=== PATIENT | male | born 1950 | race Caucasian/White ===

== ENCOUNTER 2016-12-01 22:38 | Inpatient (IN) | payer MEDICARE, OTHER ==
[2016-12-02] MEDS ORDERED: METOPROLOL 5 MG/5 ML VIAL IVP STA (02:01)
[2016-12-02] MEDS ORDERED: CLOPIDOGREL 75 MG TABLET PO STA (02:01)
[2016-12-02] MEDS ORDERED: CLOPIDOGREL 75 MG TABLET ONE (02:07)
[2016-12-02] MEDS ORDERED: METOPROLOL 5 MG/5 ML VIAL IVP ONE (02:08)
[2016-12-02] MEDS ORDERED: HEPARIN 25,000 UNITS/500 ML 500 ML IV STA (02:54)
[2016-12-02] MEDS ORDERED: HEPARIN 25,000 UNITS/500 ML 500 ML IV ONE (02:54)
[2016-12-02] MEDS ORDERED: HEPARIN 5,000 UNIT/ML VIAL IVP STA (02:54)
[2016-12-02] MEDS ORDERED: HEPARIN 5,000 UNIT/ML VIAL ONE (02:54)
[2016-12-02] MEDS ORDERED: ATORVASTATIN 10 MG TABLET PO STA (02:56)
[2016-12-02] MEDS ORDERED: TEMAZEPAM 15 MG CAPSULE PO PRN (03:59)
[2016-12-02] MEDS ORDERED: SODIUM CHLORIDE FLUSH 0.9% 10 ML SYRINGE IVP PRN (03:59)
[2016-12-02] MEDS ORDERED: ACETAMINOPHEN 325 MG TABLET PO PRN (03:59)
[2016-12-02] MEDS ORDERED: ONDANSETRON 4 MG/2 ML VIAL IVP PRN (03:59)
[2016-12-02] MEDS ORDERED: NITROGLYCERIN SL 0.4 MG TABLET SL PRN (04:01)
[2016-12-02] MEDS ORDERED: MORPHINE 2 MG/ML SYRINGE IVP PRN (04:08)
[2016-12-02] MEDS ORDERED: CLOPIDOGREL 75 MG TABLET PO SCH (05:00)
[2016-12-02] MEDS ORDERED: HEPARIN 25,000 UNITS/500 ML 500 ML IV SCH (05:00)
[2016-12-02] MEDS ORDERED: ATORVASTATIN 40 MG TABLET PO SCH (05:00)
[2016-12-02] MEDS: METOPROLOL TARTRATE 25 MG TABLET PO SCH ×2 (06:00→09:10)
[2016-12-02] MEDS ORDERED: SODIUM CHLORIDE FLUSH 0.9% 10 ML SYRINGE IVP SCH (06:00)
[2016-12-02] MEDS ORDERED: ASPIRIN CHEW 81 MG TABLET PO SCH (09:00)
[2016-12-02] MEDS ORDERED: POLYETHYLENE GLYCOL 3350 17 GM PACKET PO SCH (09:00)
[2016-12-02] MEDS ORDERED: NICOTINE 14 MG PATCH TOP SCH (09:00)
[2016-12-02] MEDS ORDERED: HEPARIN BOLUS PRN PER PROTOCOL IVP (09:08)
[2016-12-02] MEDS ORDERED: IBUPROFEN 400 MG TABLET PO ONE (10:45)
[2016-12-03] MEDS ORDERED: METOPROLOL TARTRATE 50 MG TABLET PO SCH (21:00)
== END 2016-12-02 10:59 | disposition short-term general hospital (02) | DRG 281 ==
DX: I21.4 Non-ST elevation (NSTEMI) myocardial infarction (principal); N17.9 Acute kidney failure, unspecified; E86.0 Dehydration; F17.210 Nicotine dependence, cigarettes, uncomplicated; M19.041 Primary osteoarthritis, right hand; Z96.652 Presence of left artificial knee joint; Z96.641 Presence of right artificial hip joint; Z79.82 Long term (current) use of aspirin; Z79.899 Other long term (current) drug therapy

== ENCOUNTER 2016-12-02 | Outpatient (CLI) | payer MEDICARE, OTHER | END 2016-12-02 10:59 | disposition short-term general hospital (02) | DX: I21.4 Non-ST elevation (NSTEMI) myocardial infarction (principal) | CPT/HCPCS: A0170; A0425; A0426 ==

== ENCOUNTER 2018-10-14 08:11 | Outpatient (CLI) | payer MEDICARE, OTHER ==
--- NOTE | 2018-10-15 00:37 | Ultrasound Report ---
Reason: RUQ PAIN Procedure Date: 10/14/2018 Accession Number: [id number] / [id number] Procedure: US - Abdomen Limited CPT Code: FULL RESULT: EXAM: ABDOMEN ULTRASOUND LIMITED, RUQ EXAM DATE: 10/14/2018 09:10 AM. CLINICAL HISTORY: Right upper quadrant pain. COMPARISON: None. TECHNIQUE: Real-time scanning was performed with static images obtained. FINDINGS: Liver: Normal in size and echotexture. Multiple cysts, one on the left 1.2 x 0.9 x 1.0 cm, 2 on the right 3.8 x 3.4 x 3.4 cm and 2.4 x 2.6 x 2.4 cm. Liver 15.7 cm. Main portal vein flow: Hepatopetal. Gallbladder: Normal. No stones, wall thickening, or sonographic Diehl's sign. Biliary System: CBD measures 4 mm. No intrahepatic or extrahepatic ductal dilatation. Other: The visualized pancreas and right kidney are unremarkable. No free fluid. IMPRESSION: Multiple hepatic cysts. No cholelithiasis or cholecystitis. RADIA
== END 2018-10-14 08:12 | disposition home or self-care (01) ==
LOC: DI 08:11
PROVIDERS: ATTEND Family Medicine
DX: R10.11 Right upper quadrant pain (principal); K76.89 Other specified diseases of liver
CPT/HCPCS: 76705

== ENCOUNTER 2019-01-08 10:36 | Day surgery (SDC) | payer MEDICARE, OTHER ==
[2019-01-08] MEDS ORDERED: LACTATED RINGERS 1,000 ML IV ONE (11:03)
[2019-01-08] MEDS ORDERED: fentaNYL 250 MCG/5 ML VIAL IVP ONE (11:18)
[2019-01-08] MEDS ORDERED: MIDAZOLAM 2 MG/2 ML VIAL IVP ONE (11:18)
[2019-01-08 12:48] VITALS: BP 109/65
== END 2019-01-08 12:47 | disposition home or self-care (01) ==
LOC: SDS 10:36
PROVIDERS: ATTEND Surgery
PROC: 0DJD8ZZ Inspection of Lower Intestinal Tract, Via Natural or Artificial Opening Endoscopic (ICD-10-PCS; principal; 2019-01-08 12:00)
DX: Z12.11 Encounter for screening for malignant neoplasm of colon (principal); K64.8 Other hemorrhoids; K57.30 Diverticulosis of large intestine without perforation or abscess without bleeding; Z86.010 Personal history of colon polyps; E66.9 Obesity, unspecified; Z68.42 Body mass index [BMI] 45.0-49.9, adult; I25.2 Old myocardial infarction; Z87.891 Personal history of nicotine dependence
CPT/HCPCS: G0105; J3010; J7120

== ENCOUNTER 2019-06-19 08:25 | Outpatient (CLI) | payer MEDICARE, OTHER | END 2019-06-19 08:26 | disposition home or self-care (01) | LOC: RT 08:25 | PROVIDERS: ATTEND Family Medicine | DX: Z01.810 Encounter for preprocedural cardiovascular examination (principal) | CPT/HCPCS: 93005 ==

== ENCOUNTER 2019-08-25 11:17 | Outpatient (CLI) | payer MEDICARE, OTHER ==
--- NOTE | 2019-08-25 21:00 | Ultrasound Report ---
Reason: PRESENCE OF LEFT ARTIFICIAL HIP JOINT Procedure Date: 08/25/2019 Accession Number: [id number] / [id number] Procedure: US - Duplex Ext Veins Left CPT Code: FULL RESULT: EXAM: LEFT LOWER EXTREMITY VENOUS ULTRASOUND EXAM DATE: 08/25/2019 12:30 PM. CLINICAL HISTORY: PRESENCE OF LEFT ARTIFICIAL HIP JOINT. COMPARISON: None. TECHNIQUE: Real-time sonographic vascular imaging was performed by the personal assistant through the lower extremity utilizing both color-flow and Doppler spectral analysis. Multiple pharmaceutical sales representative static images were saved for review. FINDINGS: Common Femoral Vein (CFV): Normal. CFV-GSV Junction: Normal. Profunda Femoral Vein (PFV): Normal. Femoral Vein (FV) Prox: Normal. Femoral Vein (FV) Mid: Normal. Femoral Vein (FV) Dist: Normal. Popliteal Vein: Normal. Posterior Tibial Veins: Limited visualization. Given the limitations, no thrombus identified. Limitations most severe in the proximal posterior tibial vein. Peroneal Veins: Limited visualization. Given the limitations, no thrombus identified. Entire segment limited from proximal to distal. Contralateral Side CFV: Normal. Other: None. IMPRESSION: 1. Suboptimal visualization of posterior tibial and peroneal veins. 2. Given the limitations, no evidence for deep venous thrombosis. RADIA
== END 2019-08-25 11:18 | disposition home or self-care (01) ==
LOC: DI 11:17
PROVIDERS: ATTEND Orthopaedic Surgery
DX: Z96.642 Presence of left artificial hip joint (principal)

== ENCOUNTER 2019-12-12 12:28 | Outpatient (CLI) | payer MEDICARE, OTHER ==
[2019-12-12 12:46] LABS: CALCIUM 8.7 mg/dL (8.5-10.3); CREATININE 0.9 mg/dL (0.6-1.2)
== END 2019-12-12 12:29 | disposition home or self-care (01) ==
LOC: LAB 12:28
PROVIDERS: ATTEND Internal Medicine Cardiovascular Disease
DX: I10 Essential (primary) hypertension (principal)
CPT/HCPCS: 36415; 80048

== ENCOUNTER 2021-09-02 08:02 | Outpatient (CLI) | payer MEDICARE, OTHER ==
--- NOTE | 2021-09-02 09:13 | Ultrasound Report ---
PROCEDURE: Aorta Screening INDICATIONS: FORMER SMOKER TECHNIQUE: Real time scanning was performed of the aorta and iliac arteries, with image documentatio n. COMPARISON: None. FINDINGS: Aorta: The proximal aorta is obscured. Mid-aorta measures 2.1 x 2.3 cm. Distal aortic diameter is 1.9 x 1.8 cm. Iliac arteries: Right common iliac artery measures 1.2 x 1.1 cm. Left common iliac artery measures 1.3 x 1.2 cm. IMPRESSION: 1.No aneurysmal dilatation of the visualized aorta. Reviewed by: Stevo Whaley MD on 09/02/2021 9:11 AM PDT Approved by: Stevo Whaley MD on 09/02/2021 9:11 AM PDT Station ID: [id number]
--- NOTE | 2021-09-02 09:15 | CT Report ---
PROCEDURE: Low Dose Lung Cancer Screen INDICATIONS: FORMER SMOKER TECHNIQUE: Noncontrast low-dose images were acquired from the pulmonary apices to the posterior costophrenic ang les. Multiplanar MIP reformats were then acquired. For radiation dose reduction, the following was used: automated exposure control, adjustment of mA and/or kV according to patient size. COMPARISON: CXR 12/02/2016. FINDINGS: Image quality: Excellent. Lungs and pleura: Right lower lobe calcified granuloma. No significant pulmonary nodules. No mass. A irways are clear. No acute airspace opacity. No pleural effusion. No pneumothorax. Mediastinum: Heart size is normal. Dense LAD and left circumflex coronary artery calcifications or stents. No pericardial effusion. No mediastinal adenopathy by size criteria. Thoracic aorta and carlos alberto tral pulmonary arteries are normal in size. Esophagus is normal in caliber. No hiatal hernia. Bones and chest wall: No suspicious bony lesions. No vertebral body compression fractures. ACDF not ed. No axillary or supraclavicular adenopathy by size criteria. Thyroid is not well seen due to sukhjinder fact. Abdomen: Benign liver cysts. Visualized upper abdomen solid organs and bowel loops appear normal in the absence of contrast. IMPRESSION: 1. No significant pulmonary nodules. Calcified granuloma. Lung RADS 1. Recommend continued annual screening with low dose lung cancer screening CT in 12 months . 2. Dense LAD and left circumflex coronary artery calcifications or stents. 3. Benign liver cysts. CLINICAL RECOMMENDATION STATEMENTS: In patients <35 years with an ITN detected on CT, MRI, or extrathyroidal ultrasound, the Committee re commends further evaluation with dedicated thyroid ultrasound if the nodule is "e1 cm and has no susp icious imaging features, and if the patient has normal life expectancy. In patients "e35 years with an ITN detected on CT, MRI, or extrathyroidal ultrasound, the Committee r ecommends further evaluation with dedicated thyroid ultrasound if the nodule is "e1.5 cm and has no s uspicious imaging features, and if the patient has normal life expectancy. (ACR, 2014) Reviewed by: Ash Foster MD on 09/02/2021 9:14 AM PDT Approved by: Ash Foster MD on 09/02/2021 9:14 AM PDT Station ID: [id number]
== END 2021-09-02 08:03 | disposition home or self-care (01) ==
LOC: DI 08:02
PROVIDERS: ATTEND Physician Assistant
DX: Z12.2 Encounter for screening for malignant neoplasm of respiratory organs (principal); Z13.6 Encounter for screening for cardiovascular disorders; Z87.891 Personal history of nicotine dependence; J84.10 Pulmonary fibrosis, unspecified; R93.1 Abnormal findings on diagnostic imaging of heart and coronary circulation; K76.89 Other specified diseases of liver

== ENCOUNTER 2022-09-03 09:27 | Outpatient (CLI) | payer MEDICARE, OTHER ==
--- NOTE | 2022-09-03 12:44 | CT Report ---
PROCEDURE: SINUS SCREENING WO INDICATIONS: CHRONIC SINUSITIS TECHNIQUE: Noncontrast 3.0 mm axial images acquired from the frontal sinuses to the mid-sella, with coronal and sagittal reformats. For radiation dose reduction, the following was used: automated exposure control , adjustment of mA and/or kV according to patient size. COMPARISON: 06/21/2022 FINDINGS: Image quality: Excellent. Maxillary Sinuses: There is mild to moderate mucosal thickening seen within the right maxillary sinu s and there is mild mucosal thickening seen within the left maxillary sinus. The medial allison of the maxillary sinuses are demineralized. Ethmoid Air Cells: Mild to moderate mucosal thickening is seen within the ethmoid air cells. The eth moid air cells septations are overall mildly demineralized. Sphenoid Sinuses: No bony remodeling or destruction. Sinuses are clear. Frontal Sinuses: No bony remodeling or destruction. There is mild to moderate right and mild left in feromedial frontal sinus mucosal thickening. Ostiomeatal Complexes: Ostiomeatal complexes are patent, yet they are constitutionally narrowed. No Karlos cells. Miscellaneous: Visualized intra-orbital contents are normal. No laureen bullosa. There is mild to moderate rightward nasal septal deviation. IMPRESSION: Multiple sites of paranasal sinus disease are seen, which are minimally improved compare d to the prior CT. Reviewed by: Robert Alonso MD on 09/03/2022 11:43 AM YANIRA Approved by: Robert Alonso MD on 09/03/2022 11:43 AM YANIRA Station ID: [id number]
== END 2022-09-03 09:28 | disposition home or self-care (01) ==
LOC: DI 09:27
PROVIDERS: ATTEND Otolaryngology
DX: J34.89 Other specified disorders of nose and nasal sinuses (principal); R43.8 Other disturbances of smell and taste

== ENCOUNTER 2023-09-05 11:22 | Outpatient (CLI) | payer MEDICARE, OTHER ==
--- NOTE | 2023-09-05 20:31 | XRAY Report ---
PROCEDURE: Chest 2 View X-Ray INDICATIONS: COUGH TECHNIQUE: 2 views of the chest were obtained. COMPARISON: None. FINDINGS: Surgical changes and devices: Lower cervical spine instrumentation Lungs and pleura: Obscuration left hemidiaphragm and blunting left costophrenic angle associated by basilar atelectasis and or infiltrates greater on the left. Mediastinum: Mediastinal contours appear normal. Heart size is normal. Bones and chest wall: No suspicious bony lesions. Overlying soft tissues appear unremarkable. IMPRESSION: Bibasilar atelectasis and or infiltrate greater on the left associated with moderate left pleural eff usion Reviewed by: Eder Horne MD on 09/05/2023 7:30 PM AKARACELI Approved by: Eder Horne MD on 09/05/2023 7:30 PM AKDT Station ID: [id number]
== END 2023-09-05 11:23 | disposition home or self-care (01) ==
LOC: DI.S 11:22
PROVIDERS: ATTEND Registered Nurse
DX: R05.9 Cough, unspecified (principal); J90 Pleural effusion, not elsewhere classified

== ENCOUNTER 2023-09-16 12:20 | Outpatient (CLI) | payer MEDICARE, OTHER ==
--- NOTE | 2023-09-16 16:04 | XRAY Report ---
PROCEDURE: Chest 2 View X-Ray INDICATIONS: LOBAR PNEUMONIA TECHNIQUE: 2 views of the chest were acquired. COMPARISON: Chest x-ray 09/05/2023. FINDINGS: Surgical changes and devices: None. Lungs and pleura: Bilateral lower lobe infiltrates are mildly improved compared to prior. Stable mod erate left pleural effusion. Mediastinum: Mediastinal contours appear normal. Heart size is normal. Bones and chest wall: No suspicious bony lesions. Overlying soft tissues appear unremarkable. IMPRESSION: Bilateral lower lobe infiltrates are mildly improved compared to prior. Stable moderate left pleural effusion. Reviewed by: Antonio Guerra MD on 09/16/2023 1:05 PM PDT Approved by: Antonio Guerra MD on 09/16/2023 1:05 PM PDT Station ID: [id number]
== END 2023-09-16 12:21 | disposition home or self-care (01) ==
LOC: DI 12:20
PROVIDERS: ATTEND Registered Nurse
DX: J18.1 Lobar pneumonia, unspecified organism (principal); J90 Pleural effusion, not elsewhere classified

== ENCOUNTER 2023-10-03 10:16 | Outpatient (CLI) | payer MEDICARE, OTHER ==
--- NOTE | 2023-10-03 11:54 | XRAY Report ---
PROCEDURE: Chest 2 View X-Ray INDICATIONS: PLEURAL EFFUSION TECHNIQUE: 2 views of the chest were acquired. COMPARISON: CXR 09/16/2023, 09/05/2023. FINDINGS: Surgical changes and devices: ACDF. Lungs and pleura: No pneumothorax. Small left pleural effusion is stable. Bibasilar hazy opacity is similar. Mediastinum: Mediastinal contours appear unchanged. Heart size is normal. Bones and chest wall: No suspicious bony lesions. Overlying soft tissues appear unremarkable. IMPRESSION: Small left pleural effusion is unchanged. Mild bibasilar hazy opacity is similar. Reviewed by: Ash Foster MD on 10/03/2023 11:53 AM PST Approved by: Ash Foster MD on 10/03/2023 11:53 AM [facility] Station ID: [id number]
== END 2023-10-03 10:17 | disposition home or self-care (01) ==
LOC: DI.S 10:16
PROVIDERS: ATTEND Registered Nurse
DX: J90 Pleural effusion, not elsewhere classified (principal); R91.8 Other nonspecific abnormal finding of lung field

== ENCOUNTER 2023-10-25 11:02 | Outpatient (CLI) | payer MEDICARE, OTHER ==
--- NOTE | 2023-10-25 15:16 | CT Report ---
PROCEDURE: CT chest without contrast INDICATIONS: PLEURAL EFFUSION TECHNIQUE: Helical axial CT of the chest was obtained without contrast and reformatted in multiple pl anes. Radiation dose reduction was achieved using automated exposure control, adjustment of mA and/or kV according to patient size. COMPARISON: Chest x-ray 10/03/2023 FINDINGS: Lungs and pleura: Patchy multifocal pulmonary infiltrates noted with bibasilar consolidation greater than left . Moderate left-sided pleural effusion Mediastinum: Heart size is normal. No pericardial effusion. No large vessel abnormality. No mediastin al adenopathy by size criteria. Dense coronary artery vascular calcification Chest wall and lower neck: Thyroid is unremarkable. No axillary or supraclavicular adenopathy by size . 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 No osseous erosions. No lytic or blastic lesion. Upper Abdomen: Hepatic cysts measure up to 3.9 cm IMPRESSION: Patchy bilateral pulmonary infiltrates, consolidation and left moderate pleural effusion consistent w ith multifocal pneumonia Reviewed by: Eder Horne MD on 10/25/2023 2:15 PM AKST Approved by: Eder Horne MD on 10/25/2023 2:15 PM AKST Station ID: [id number]
== END 2023-10-25 11:03 | disposition home or self-care (01) ==
LOC: DI 11:02
PROVIDERS: ATTEND Registered Nurse
DX: J90 Pleural effusion, not elsewhere classified (principal); R91.8 Other nonspecific abnormal finding of lung field